=== PATIENT | female | born 1940 | race Caucasian/White ===

== ENCOUNTER 2016-09-25 09:18 | Emergency (ER) | payer MEDICARE ==
[~2016-09-25 09:18] MED LIST: ASA325 MG PO; CELEBREX200 MG PO; HYDROCODON-ACE1 EAC4 PO; LIPITOR20 MG PO; NORVASC10 MG PO; ONE A DAY VITAMIN PO; OXYCODONE IR 5MG PO; PROTONIX40 MG PO; SENOKOT S1 TAB PO; TYLENOL325 MG PO; ULTRAM50 MG PO
--- NOTE | 2016-10-01 21:34 | ER ---
ADMIT: 09/25/2016 RM/LOC: ER [facility] MR#: [id number] [id number] [place], [place] [id number] URBINACLIFAMADOR Josafat [address] [id number] Emergency Room Report SEX: F AGE: 76 : 1940 DATE: 09/25/2016 This 76-year-old female with 17 days of diarrhea. She states it is only associated with eating. Denies any antibiotic use. No recent travel. She has not been exposed to anyone with diarrhea. She did state she was once hospitalized for an E. coli associated diarrhea, which was bloody. She feels this is not similar to that at all. Of note, she states that it is always associated with meals. Whatever she eats, she has to go to the bathroom within 10 minutes of eating. She has had a negative colonoscopy in the recent past. See T-sheet for history and physical. Lab work and stool studies were done at Dr. Clemens's office, we do not have those available. Her CBC was normal. Electrolytes were significant for potassium of 3.2, she was given potassium in the Emergency Department, instructed to follow up with Dr. Clemens tomorrow and inquire about the results of her stool studies. DIAGNOSES: 1. Hypokalemia. 2. Diarrhea. Carlos Lemos MD/ percy JOB #: [id number] CC: Carlos Lemos MD, Attending Physician Sushil Waller, Family Physician
== END 2016-09-25 21:21 | disposition home or self-care (01) ==
LOC: ER 09:18
DX: E87.6 Hypokalemia (principal); R19.7 Diarrhea, unspecified; Z79.899 Other long term (current) drug therapy

== ENCOUNTER → 2016-09-26 | Outpatient (CLI) | payer MEDICARE | END | disposition home or self-care (01) | DX: R19.7 Diarrhea, unspecified (principal); K56.69 Other intestinal obstruction ==